=== PATIENT | female | born 1990 | race Two or more races ===

== ENCOUNTER 2017-09-28 11:50 | Emergency (ER) | payer MEDICAID ==
[2017-09-28 11:59] VITALS: BP 140/77
[2017-09-28] MEDS ORDERED: oxyCOD/ACETAMIN 5 MG/325 MG TABLET PO STA (12:14)
--- NOTE | 2017-09-28 12:24 | XRAY Preliminary Report ---
Exam: XR WRIST 3 VIEW LT IMPRESSION: Distal radial fracture. [facility] SITE ID: [id number]
--- NOTE | 2017-09-28 12:31 | XRAY Report ---
EXAM: LEFT WRIST RADIOGRAPHY EXAM DATE: 09/28/2017 12:14 PM. CLINICAL HISTORY: Pain after a fall. COMPARISON: None. TECHNIQUE: 3 views. FINDINGS: Bones: Acute comminuted nondisplaced fracture of the distal radial metaphysis/epiphysis, with intra-a rticular extension. Joints: Normal. No subluxations. Soft Tissues: Edema at the fracture site. IMPRESSION: Distal radial fracture. [facility] Referring Provider Line: [phone] SITE ID: [id number]
--- NOTE | 2017-09-28 12:43 | ED Physician Documentation ---
PD HPI UPPER EXT INJURY - Stated complaint Stated Complaint: WRIST PX - Chief complaint Chief Complaint: Ext Problem - History of Present Illness Location: Left, Wrist Type of injury: Fall Where injury occurred: Home Timing - onset: Yesterday Timing - details: Abrupt onset Worsened by: Moving, Palpating Similar symptoms before: Has not had sx before Recently seen: Not recently seen - Additonal information Additional information: Patient is a 27 year old female who is presenting to the emergency department for right sided wrist pain. patient states that she fell numerous times over the last two days due to celebrating and the snow. Patient states that her only pain is in her left wrist. Review of Systems Constitutional: reports: Reviewed and negative Eyes: denies: Decreased vision, Photophobia Ears: reports: Reviewed and negative Nose: denies: Epistaxis Throat: denies: Dental pain / toothache Cardiac: reports: Reviewed and negative Respiratory: reports: Reviewed and negative GI: denies: Nausea, Vomiting : reports: Reviewed and negative Skin: denies: Abrasion (s) Musculoskeletal: reports: Extremity pain, Joint pain, Extremity swelling, Joint swelling Neurologic: denies: Focal weakness, Numbness PD PAST MEDICAL HISTORY - Past Medical History Past Medical History: No - Past Surgical History Past Surgical History: No - Present Medications Home Medications: Ambulatory Orders Medication Instructions Recorded Confirmed Oxycodone HCl/Acetaminophen 1 - 2 each PO Q6H PRN #7 tablet 09/28/17 [Percocet 5-325 mg Tablet] - Allergies Allergies/Adverse Reactions: Allergies Allergy/AdvReac Type Severity Reaction Status Date / Time No Known Drug Allergies Allergy Verified 09/28/17 11:58 - Social History Does the pt smoke?: Yes Smoking Status: Current every day smoker Does the pt drink ETOH?: Yes ETOH Use: Beer, Liquor Does the pt have substance abuse?: Yes Substance Use and Type: Marijuana - Immunizations Immunizations are current?: Yes - POLST Patient has POLST: No PD ED PE NORMAL - Vitals Vital signs reviewed: Yes - General General: Alert and oriented X 3, Well developed/nourished - HEENT HEENT: Atraumatic, PERRL, Moist mucous membranes - Neck Neck: Supple, no meningeal sign, No JVD - Cardiac Cardiac: RRR, No murmur - Respiratory Respiratory: No respiratory distress - Abdomen Abdomen: Soft, Non tender, Non distended - Derm Derm: Normal color, No rash - Neuro Neuro: Alert and oriented X 3, No motor deficit, No sensory deficit, Normal speech Eye Opening: Spontaneous Motor: Obeys Commands Verbal: Oriented GCS Score: 15 - Psych Psych: Normal mood PD ED PE EXPANDED - Extremities Extremities: Left wrist (tenderness and swelling of left wrist), Motor intact, Sensory intact, Vascular intact, Tendon intact Results - Vitals Vitals: Vital Signs - 24 hr 09/28/17 11:54 Temperature 37.3 C Heart Rate 107 H Respiratory 16 Rate Blood Pressure 140/77 H O2 Saturation 100 Oxygen O2 Source Room air - Rads (name of study) wrist x-ray Radiology: Final report received, EMP read contemporaneously (non displaced distal radial fracture) Procedures - Splint (location) left wrist Splint applied by: Nurse Type of splint: Thumb spica Other: Patient tolerated well, No complications, Neurovascular intact, Good alignment PD MEDICAL DECISION MAKING - ED course Complexity details: reviewed old records, reviewed results, re-evaluated patient , considered differential, d/w patient, d/w family ED course: Patient was seen and examined at bedside. films were reviewed. Patient had a non-displaced fracture and was placed in a thumb spica. Patient was treated with ice and percocet. Patient required no further work up at this time and was stable for discharge for outpatient follow up. Departure - Departure Disposition: 01 Home, Self Care Clinical Impression: Distal radius fracture, left Condition: Good Instructions: ED Fx Upper Ext Follow-Up: Pineda Galdamez MD [Provider Admit Priv/Credential] - Prescriptions: Oxycodone HCl/Acetaminophen [Percocet 5-325 mg Tablet] 1 - 2 each PO Q6H PRN #7 tablet PRN Reason: pain Comments: Your symptoms today are caused by a fractured wrist. You were placed in a splint today and will need to call the orthopedic doctor to schedule a follow up appointment. You should ice your wrist and keep it elevated. You can take tylenol 650mg as needed for pain. You may return to the emergency department at any time for new, worsening or uncontrollable symptoms. Discharge Date/Time: 09/28/17 12:52
== END 2017-09-28 12:52 | disposition home or self-care (01) ==
LOC: ED 11:50
DX: S52.502A Unspecified fracture of the lower end of left radius, initial encounter for closed fracture (principal); W00.0XXA Fall on same level due to ice and snow, initial encounter; Y92.019 Unspecified place in single-family (private) house as the place of occurrence of the external cause; F17.200 Nicotine dependence, unspecified, uncomplicated
CPT/HCPCS: 29125; 73110; 99283; A9270

== ENCOUNTER 2017-10-01 15:16 | Emergency (ER) | payer MEDICAID ==
[2017-10-01 15:28] VITALS: BP 132/91
[2017-10-01] MEDS ORDERED: KETOROLAC 10 MG TABLET PO STA (16:31)
[2017-10-01] MEDS ORDERED: traMADol 50 MG TABLET PO STA (16:31)
--- NOTE | 2017-10-01 16:34 | ED Physician Documentation ---
PD HPI UPPER EXT INJURY - Stated complaint Stated Complaint: LT HAND PX - Chief complaint Chief Complaint: Ext Problem - History obtained from History obtained from: Patient, Family - History of Present Illness Location: Other (She is a few days out from a distal radius fracture, the splint is uncomfortable and she needs more pain medications, no acute complaints.) Review of Systems Constitutional: denies: Fever, Chills Cardiac: denies: Chest pain / pressure, Palpitations Respiratory: denies: Dyspnea, Cough PD PAST MEDICAL HISTORY - Past Medical History Past Medical History: No - Past Surgical History Past Surgical History: No - Present Medications Home Medications: Ambulatory Orders Medication Instructions Recorded Confirmed Ketorolac [Toradol] 10 mg PO Q6H PRN #20 tablet 10/01/17 traMADol [Ultram] 50 mg PO Q4-6H PRN #15 tablet 10/01/17 - Allergies Allergies/Adverse Reactions: Allergies Allergy/AdvReac Type Severity Reaction Status Date / Time No Known Drug Allergies Allergy Verified 10/01/17 15:28 - Social History Does the pt smoke?: Yes Smoking Status: Current every day smoker Does the pt drink ETOH?: Yes ETOH Use: Liquor Does the pt have substance abuse?: Yes Substance Use and Type: Marijuana - Immunizations Immunizations are current?: Yes - POLST Patient has POLST: No PD ED PE NORMAL - Vitals Vital signs reviewed: Yes - General General: Alert and oriented X 3, No acute distress - Extremities Extremities: Other (Left distal radius is very tender, she is in a thumb spica splint which was Rewrapped looser but it was not very tight to start with.) - Neuro Neuro: Alert and oriented X 3, Normal speech Results - Vitals Vitals: Vital Signs - 24 hr 10/01/17 15:22 Temperature 36.7 C Heart Rate 90 Respiratory 16 Rate Blood Pressure 132/91 H O2 Saturation 100 Oxygen O2 Source Room air Procedures - Splint (location) L arm Splint applied by: Tech Type of splint: Long arm, Sugar tong Other: Patient tolerated well, No complications, Neurovascular intact, Sling provided PD MEDICAL DECISION MAKING - ED course ED course: Going to switch her over to a sugar tong splint, put her in a splaying. Mom did not want her to have any more Percocet, patient was okay with this and requested tramadol and Toradol. We discussed the potential cons of Toradol but I think it will be fine for a few days. Departure - Departure Disposition: 01 Home, Self Care Clinical Impression: Distal radius fracture, left Qualifiers: Encounter type: subsequent encounter Fracture type: closed Fracture morphology : other extra-articular Fracture healing: with routine healing Qualified Code(s) : S52.552D - Other extraarticular fracture of lower end of left radius, subsequent encounter for closed fracture with routine healing Condition: Good Record reviewed to determine appropriate education?: Yes Instructions: ED Fx Upper Ext Prescriptions: Ketorolac [Toradol] 10 mg PO Q6H PRN #20 tablet PRN Reason: Pain traMADol [Ultram] 50 mg PO Q4-6H PRN #15 tablet PRN Reason: Pain Comments: Keep the splint on and dry, follow-up with the orthopedic surgeon next week as scheduled. Your blood pressure was elevated today on check into the emergency department. This does not mean that you have hypertension, it is a common phenomenon to come to the emergency department and have elevated blood pressure. I recommend that you see your primary care physician within the week to have it rechecked when you are feeling better. Forms: Activity restrictions
== END 2017-10-01 16:48 | disposition home or self-care (01) ==
LOC: ED 15:16
DX: S52.552D Other extraarticular fracture of lower end of left radius, subsequent encounter for closed fracture with routine healing (principal); R03.0 Elevated blood-pressure reading, without diagnosis of hypertension; X58.XXXD Exposure to other specified factors, subsequent encounter
CPT/HCPCS: 29105; 99283; A9270

== ENCOUNTER 2017-10-25 00:36 | Emergency (ER) | payer MEDICAID ==
[2017-10-25] MEDS ORDERED: LIDOCAINE 2% 10 ML MDV SUBQ STA (00:56)
--- NOTE | 2017-10-25 01:39 | ED Physician Documentation ---
PD HPI UPPER EXT INJURY - Stated complaint Stated Complaint: RT HAND LACERATION - Chief complaint Chief Complaint: Laceration - History obtained from History obtained from: Patient, Family - History of Present Illness Location: Right, Hand Type of injury: Laceration Where injury occurred: Home Timing - onset: Today Worsened by: Moving, Palpating Contributing factors: No: Anticoagulated Recently seen: Not recently seen - Additonal information Additional information: Patient is a 27 year old female with no significant past medical history who is presenting to the emergency department for hand laceration. patient states that she was drinking and dropped a beer glass and when she went to catch it she cut her hand. Patient denies any other trauma and does not know when her last tetanus was. Review of Systems Constitutional: denies: Fever, Chills Eyes: reports: Reviewed and negative Ears: reports: Reviewed and negative Nose: reports: Reviewed and negative Throat: reports: Reviewed and negative Cardiac: reports: Reviewed and negative Respiratory: reports: Reviewed and negative GI: reports: Reviewed and negative : reports: Reviewed and negative Skin: reports: Laceration (s) Musculoskeletal: reports: Extremity pain Neurologic: denies: Generalized weakness, Focal weakness, Numbness PD PAST MEDICAL HISTORY - Past Surgical History Past Surgical History: No - Present Medications Home Medications: Ambulatory Orders Medication Instructions Recorded Confirmed traMADol [Ultram] 50 mg PO Q4-6H PRN #15 tablet 10/01/17 10/25/17 - Allergies Allergies/Adverse Reactions: Allergies Allergy/AdvReac Type Severity Reaction Status Date / Time No Known Drug Allergies Allergy Verified 10/25/17 00:44 - Social History Does the pt smoke?: Yes Smoking Status: Current every day smoker Does the pt drink ETOH?: Yes Does the pt have substance abuse?: Yes - Immunizations Immunizations are current?: No Immunizations: TDAP >10years/unknown - POLST Patient has POLST: No PD ED PE NORMAL - Vitals Vital signs reviewed: Yes - General General: Alert and oriented X 3, No acute distress - HEENT HEENT: Atraumatic - Cardiac Cardiac: RRR - Respiratory Respiratory: No respiratory distress - Abdomen Abdomen: Non distended - Neuro Neuro: Alert and oriented X 3, No motor deficit, No sensory deficit, Normal speech - Psych Psych: Normal mood PD ED PE EXPANDED - Extremities Extremities: Right hand (2cm laceration at base of 1st digit), Motor intact, Sensory intact, Vascular intact Results - Vitals Vitals: Vital Signs - 24 hr 10/25/17 00:45 Temperature 3625 C H Heart Rate 86 Respiratory 18 Rate Blood Pressure 127/68 O2 Saturation 100 Oxygen O2 Source Room air Procedures - Laceration (location) right hand Length in cm: 2 Wound type: Curved Neurovascular status: Sensory intact, Motor intact, Vascular intact Anesthesia: Lidocaine 2% Wound Preparation: Irrigated copiously NS Skin layer closure: Nylon, Size #-0 - enter number (4), Sutures - enter # (3) Other: Patient tolerated well, Dressing applied, Tetanus booster given Complexity: Simple PD MEDICAL DECISION MAKING - ED course Complexity details: reviewed old records, reviewed results, re-evaluated patient , d/w patient, d/w family ED course: Patient was seen and examined at bedside. laceration was repaired as described above. Patient was given tetanus. Patient required no further work up and was stable for discharge with outpatient follow up. Departure - Departure Disposition: 01 Home, Self Care Clinical Impression: Laceration Condition: Good Instructions: ED Laceration Hand Follow-Up: primary,care provider [Other] - Within 1 week Comments: Your symptoms today are being caused by a skin laceration. You will need to keep it clean and dry. You should leave the dressing on it for the next 24 hours. After that you can clean it gently with soap and water. You can take motrin or tylenol as needed for pain. You should follow up with your doctor in a week for suture removal. You may return to the emergency department at any time for new, worsening or uncontrollable symptoms.
[2017-10-25] MEDS ORDERED: TETANUS/DIPHTHERIA/PERTUSSIS 0.5 ML SYRINGE IM ONE (01:42)
[2017-10-25] MEDS ORDERED: BACITRACIN OINT TOP STA (01:42)
[2017-10-25 02:18] VITALS: BP 128/69
== END 2017-10-25 02:19 | disposition home or self-care (01) ==
LOC: ED 00:36
DX: S61.411A Laceration without foreign body of right hand, initial encounter (principal); W25.XXXA Contact with sharp glass, initial encounter; Y92.019 Unspecified place in single-family (private) house as the place of occurrence of the external cause; Z23 Encounter for immunization; F17.200 Nicotine dependence, unspecified, uncomplicated
CPT/HCPCS: 12001; 90471; 90715; 99282; 99283; A9270

== ENCOUNTER 2021-05-03 12:27 | Emergency (ER) | payer MEDICAID ==
[2021-05-03] MEDS ORDERED: SODIUM CHLORIDE 0.9% 1,000 ML IV STA (12:51)
[2021-05-03] MEDS ORDERED: ONDANSETRON 4 MG/2 ML VIAL IVP STA (12:51)
--- NOTE | 2021-05-03 12:53 | ED Physician Documentation ---
PD HPI NVD - Stated complaint Stated Complaint: VOMITING - Chief complaint Chief Complaint: Abd Pain - History obtained from History obtained from: Patient - Additonal information Additional information: Previously healthy 31-year-old woman has 2 days of vomiting. She has burning chest and abdominal pain but only when she vomits. She denies shortness of breath. No fevers. But she has normal sweating when she vomits. She may be very slightly late for her menses and she is sexually active. Otherwise has not been exposed to any infectious illnesses that she knows of and has not been traveling. No fevers or body aches. She has not had a good bowel movement in 2 days. No blood from either end. Review of Systems Ten Systems: 10 systems reviewed and negative Constitutional: reports: Sweats. denies: Fever Cardiac: reports: Chest pain / pressure. denies: Palpitations Respiratory: denies: Dyspnea, Cough : reports: Dysuria, Frequency PD PAST MEDICAL HISTORY - Past Surgical History Past Surgical History: No - Present Medications Home Medications: Ambulatory Orders Medication Instructions Recorded Confirmed Cefdinir 300 mg PO BID #20 cap 05/03/21 Magic Mouthwath 5 ml PO Q6H PRN #120 ml 05/03/21 Omeprazole [PriLOSEC] 20 mg PO DAILY #30 cap 05/03/21 Ondansetron Odt [Zofran] 4 mg TL Q6H PRN #10 tablet 05/03/21 - Allergies Allergies/Adverse Reactions: Allergies Allergy/AdvReac Type Severity Reaction Status Date / Time No Known Drug Allergies Allergy Verified 05/03/21 12:40 - Social History Does the pt smoke?: Yes Smoking Status: Current every day smoker Does the pt drink ETOH?: Yes Does the pt have substance abuse?: Yes - Immunizations Immunizations are current?: No Immunizations: TDAP >10years/unknown - POLST Patient has POLST: No PD ED PE NORMAL - Vitals Vital signs reviewed: Yes - General General: Alert and oriented X 3, No acute distress - HEENT HEENT: PERRL, EOMI - Neck Neck: Supple, no meningeal sign, No bony TTP - Cardiac Cardiac: RRR, No murmur - Respiratory Respiratory: No respiratory distress, Clear bilaterally - Abdomen Abdomen: Normal bowel sounds, Soft, Non tender - Back Back: No CVA TTP, No spinal TTP - Derm Derm: Normal color, Warm and dry - Extremities Extremities: No edema, No calf tenderness / cord - Neuro Neuro: Alert and oriented X 3, Normal speech Results - Vitals Vitals: Vital Signs - 24 hr 05/03/21 05/03/21 12:35 14:40 Temperature 36.9 C 36.7 C Heart Rate 102 H 91 Respiratory 16 16 Rate Blood Pressure 152/99 H 145/107 H O2 Saturation 97 100 Oxygen O2 Source Room air - Labs Labs: Laboratory Tests 05/03/21 05/03/21 05/03/21 12:05 12:05 12:45 WBC 8.6 RBC 4.47 Hgb 15.6 Hct 45.4 MCV 101.6 H MCH 34.9 H MCHC 34.4 RDW 13.2 Plt Count 225 MPV 9.0 Neut # (Auto) 6.6 Lymph # (Auto) 1.0 L Stanly # (Auto) 0.8 Eos # (Auto) 0.0 Baso # (Auto) 0.1 Absolute Nucleated RBC 0.00 Nucleated RBC % 0.0 Sodium 135 Potassium 3.5 Chloride 87 L Carbon Dioxide 26 Anion Gap 22.0 H BUN 14 Creatinine 0.8 Estimated GFR (MDRD) 85 L Glucose 100 Calcium 10.5 H Total Bilirubin 2.3 H AST 125 H ALT 70 H Alkaline Phosphatase 82 Total Protein 9.7 H Albumin 5.3 Globulin 4.4 H Albumin/Globulin Ratio 1.2 Lipase 40 Urine Color DARK YELLOW Urine Clarity CLEAR Urine pH 6.0 Ur Specific Lagro >=1.030 H Urine Protein >=300 H Urine Glucose (UA) NEGATIVE Urine Ketones >=80 H Urine Occult Blood MODERATE H Urine Nitrite POSITIVE H Urine Bilirubin NEGATIVE Urine Urobilinogen 1 (NORMAL) Ur Leukocyte Esterase NEGATIVE Urine RBC 0-5 Urine WBC 4-5 Ur Squamous Epith Cells RARE Squamous Urine Bacteria Few Ur Microscopic Review INDICATED Urine Culture Comments INDICATED Urine HCG, Qual NEGATIVE - Rads (name of study) Right upper quadrant ultrasound demonstrates increased hepatic echogenicity, normal gallbladder Radiology: EMP read contemporaneously PD MEDICAL DECISION MAKING - ED course ED course: 31-year-old woman with vomiting, she does have some dysuria and frequency this, so may have been instigated by UTI. No headache. Examination is very benign. Labs reviewed, CBC is relatively normal with the exception of elevated MCV. Chemistries notable for elevated liver enzymes with bilirubin of 2.3, AST 125, ALT of 70. Urinalysis is positive for evidence of infection and she is given Rocephin IV here. Labs discussed with patient. She has had no right upper quadrant pain. She is not tender in the right upper quadrant. Prior to getting sick she was drinking daily. She says about 3 drinks of hard alcohol every day. Discussed that this may be causative for the liver enzyme elevation, but will obtain an ultrasound of the right upper quadrant. Departure - Departure Disposition: Home, Self Care Clinical Impression: Esophagitis Gastritis Qualifiers: Gastritis type: alcoholic Chronicity: acute Gastritis bleeding: without bleeding Qualified Code(s): K29.20 - Alcoholic gastritis without bleeding Condition: Good Record reviewed to determine appropriate education?: Yes Instructions: ED PUD Vs Gastritis Follow-Up: SYLVIA LIVE ARNP [Physician No Access] - Prescriptions: Cefdinir 300 mg PO BID #20 cap Magic Mouthwath 5 ml PO Q6H PRN #120 ml PRN Reason: dyspepsia Omeprazole [PriLOSEC] 20 mg PO DAILY #30 cap Ondansetron Odt [Zofran] 4 mg TL Q6H PRN #10 tablet PRN Reason: Nausea / Vomiting Comments: As discussed you do have abnormal liver enzymes, this is likely related to alcohol. Recommend you completely stop using alcohol, we are also giving his medications to help with nausea, stomach acid, for the UTI. Return if worsening. You will need to establish primary care. On-call for primary care follow-up next week on the [facility] and is [facility], her numbers on this form, call Thursday. You have a Covid test pending. You need to self quarantine until the result is done and negative. Do not leave your house. Do not get near anybody. The results should be done in 48 to 72 hours. We will call with a positive result, the fastest way to get a negative result for confirmation though is to go to the hospital website at [email or web address], click on the my [facility] tab and sign up for the patient portal. If any friends or family get sick and would like to have a Covid test done, but do not have signs or symptoms that would necessitate being hospitalized, we encourage testing through our coronavirus swabbing station, call [phone] to schedule an appointment. Forms: Activity restrictions
[2021-05-03 13:00] LABS: GLUCOSE, URINE (UA) NEGATIVE (NEGATIVE); KETONES,URINE (UA) >=80 mg/dL (NEGATIVE); LEUKOCYTE ESTERASE, URINE NEGATIVE (NEGATIVE); NITRITE,URINE POSITIVE (NEGATIVE); OCCULT BLOOD,URINE MODERATE (NEGATIVE); PROTEIN,URINE >=300 mg/dL (NEGATIVE); UROBILINOGEN,URINE 1 (NORMAL) E.U./dL (NORMAL)
[2021-05-03 13:03] LABS: BASOPHILS # (AUTO) 0.1 10^3/uL (0.0-0.1); BASOPHILS % (AUTO) 0.8 %; EOSINOPHILS % (AUTO) 0.5 %; HCT - HEMATOCRIT 45.4 % (37.0-47.0); HGB - HEMOGLOBIN 15.6 g/dL (12.0-16.0); LYMPHOCYTES % (AUTO) 11.8 %; MEAN CORPUSCULAR HEMOGLOBIN 34.9 pg (27.0-31.0); MEAN CORPUSCULAR HGB CONC 34.4 g/dL (32.0-36.0); MEAN CORPUSCULAR VOLUME 101.6 fL (81.0-99.0); MONOCYTES # (AUTO) 0.8 10^3/uL (0.0-1.0); MONOCYTES % (AUTO) 9.8 %; NEUTROPHILS # (AUTO) 6.6 10^3/uL (1.5-6.6); NEUTROPHILS % (AUTO) 76.6 %; PLT - PLATELET COUNT 225 10^3/uL (130-450); RED BLOOD COUNT 4.47 10^6/uL (4.20-5.40); RED CELL DISTRIBUTION WIDTH 13.2 % (12.0-15.0); WHITE BLOOD COUNT 8.6 x10^3/uL (4.8-10.8)
[2021-05-03 13:04] LABS: CLARITY,URINE CLEAR (CLEAR)
[2021-05-03 13:06] LABS: HCG UR QUAL NEGATIVE
[2021-05-03 13:12] LABS: BILIRUBIN,URINE NEGATIVE (NEGATIVE); ICTOTEST,URINE NEGATIVE; RBC,URINE 0-5 /HPF (0-5); SQUAMOUS EPITHELIAL CELL,UR RARE Squamous (<= Few)
[2021-05-03 13:13] LABS: BACTERIA,URINE Few /HPF (None Seen)
[2021-05-03] MEDS ORDERED: cefTRIAXone 1 GM in SODIUM CHLORIDE 0.9% MINIBAG 100 ML IV STA (13:14)
[2021-05-03 13:20] LABS: ALBUMIN 5.3 g/dL (3.2-5.5); ALBUMIN/GLOBULIN RATIO 1.2 (1.0-2.2); BILIRUBIN,TOTAL 2.3 mg/dL (0.2-1.0); CALCIUM 10.5 mg/dL (8.5-10.3); CREATININE 0.8 mg/dL (0.4-1.0); POTASSIUM 3.5 mmol/L (3.5-5.0); TOTAL PROTEIN 9.7 g/dL (6.7-8.2)
[2021-05-03] MEDS ORDERED: PANTOPRAZOLE 40 MG VIAL IVP STA (15:13)
[2021-05-03] MEDS ORDERED: MAG HYDROX/AL HYDROX/SIMETH 30 ML UDC PO STA (15:13)
[2021-05-03] MEDS ORDERED: LIDOCAINE VISCOUS 2% 15 ML UDC MM STA (15:13)
--- NOTE | 2021-05-03 15:34 | Ultrasound Report ---
PROCEDURE: Abdomen Limited INDICATIONS: vomiting, elevated liver enz TECHNIQUE: Real-time scanning was performed of the abdominal and retroperitoneal organs, with image documentatio n. COMPARISON: None. FINDINGS: Liver: Liver is normal in size and diffuse increased echogenicity. Gallbladder: The gallbladder appears normal without gallstones or gallbladder wall thickening. There is no pericholecystic fluid. Sonographic Powell sign is negative. Biliary ducts: Intrahepatic bile ducts are non-dilated. Extrahepatic bile duct caliber measures 3 m m. Normal is 6-7 mm or less in diameter, or 10 mm or less post-cholecystectomy. Pancreas: Visualized portions of the pancreas are sonographically normal. The pancreatic tail is no t well-visualized. Kidneys: Right kidney is normal in size and echotexture. Right kidney measures 10.8 cm long. No hyd ronephrosis or nephrolithiasis. No solid masses. Miscellaneous: No free right upper quadrant fluid. IMPRESSION: 1. Diffusely increased hepatic echogenicity is nonspecific, but most commonly encountered in the set ting of hepatic steatosis. However, other causes of hepatocellular disease are not excluded. Recommen d clinical correlation. 2. Normal gallbladder. No biliary ductal dilatation. Reviewed by: Wagner Tamayo MD on 05/03/2021 3:32 PM PDT Approved by: Wagner Tamayo MD on 05/03/2021 3:32 PM PDT Station ID: [id number]
[2021-05-03 15:49] VITALS: BP 136/97
== END 2021-05-03 15:53 | disposition home or self-care (01) ==
LOC: ED 12:27
DX: K29.20 Alcoholic gastritis without bleeding (principal); N39.0 Urinary tract infection, site not specified; F17.200 Nicotine dependence, unspecified, uncomplicated; Z20.822 Contact with and (suspected) exposure to COVID-19
CPT/HCPCS: 36415; 76705; 80053; 81001; 81025; 83690; 85025; 87086; 87635; 96365; 96375; 99284; A9270; 81003